=== PATIENT | male | born 1980 | race Caucasian/White ===

== ENCOUNTER 2025-02-13 21:27 | Emergency (ER) | payer MEDICAID ==
[~2025-02-13] VITALS: Ht 167.6 cm; Wt 90.0 kg
[2025-02-13 21:32] VITALS: O2SAT 100
[2025-02-13] MEDS ORDERED: MIDAZOLAM HCL 5 MG/ML VIAL IM ONE (22:00)
[2025-02-13] MEDS: SODIUM CHLORIDE 0.9% 1,000 ML IV ONE (23:03)
[2025-02-13 23:06] LABS: BASOPHILS % 0.5 % (0.0-2.0); EOSINOPHILS % 4.3 % (0.0-5.0); HEMATOCRIT. 42.8 % (42.0-52.0); HEMOGLOBIN. 14.4 g/dL (14.0-18.0); LYMPHOCYTES % 41.6 % (20.0-50.0); MEAN PLATELET VOLUME 8.0 fl (7.4-10.4); MONOCYTES % 6.6 % (2.0-8.0); NEUTROPHILS % 47.0 % (40.0-76.0); PLATELET 276 x1000/uL (130-400); RED BLOOD CELL COUNT 5.13 mill/uL (4.7-6.1); RED CELL DISTRIBUTION WIDTH 13.2 % (11.6-14.6)
[2025-02-13 23:20] LABS: CREATININE 1.0 mg/dL (0.6-1.3)
[2025-02-13 23:21] LABS: UREA NITROGEN BLOOD 8 mg/dL (9-23)
[2025-02-13 23:23] LABS: ASPARTATE AMINOTRANSFERASE 34 IU/L (<34); BILIRUBIN DIRECT 0.1 mg/dL (<=3.0); BILIRUBIN TOTAL 0.4 mg/dL (0.1-1.0); PROTEIN TOTAL 6.7 g/dL (6.0-8.3)
[2025-02-14] MEDS: MIDAZOLAM HCL 2 MG/2 ML VIAL IM NR (01:16)
[2025-02-14] MEDS: HALOPERIDOL LACTATE 5MG/ML VIAL IM ONE (01:16)
[2025-02-14] MEDS: DIPHENHYDRAMINE 50MG/ML VIAL IM ONE (01:16)
[2025-02-14 06:00] VITALS: BP 107/63; PULSE 55; RESP 18; TEMP 36.9; O2SAT 97
[2025-02-14 11:04] LABS: *AMPHETAMINES SCREEN URINE NEGATIVE (NEGATIVE); *BENZODIAZEPINES SCREEN URINE NEGATIVE (NEGATIVE)
[2025-02-14 11:05] LABS: *BARBITURATES SCREEN URINE NEGATIVE (NEGATIVE); *COCAINE SCREEN URINE NEGATIVE (NEGATIVE); METHADONE URINE SCREEN NEGATIVE (NEGATIVE); OPIATES URINE SCREEN NEGATIVE (NEGATIVE)
[2025-02-14 11:06] LABS: CANNABINOID URINE SCREEN NEGATIVE (NEGATIVE); ECSTASY MDMA SCREEN URINE NEGATIVE (NEGATIVE); PHENCYCLIDINE URINE SCREEN NEGATIVE (NEGATIVE)
[2025-02-14] MEDS: ARIPIPRAZOLE 5MG TABLET PO SCH (11:41)
[2025-02-14] MEDS: ACETAMINOPHEN 325MG TABLET PO ONE (16:30)
== END 2025-02-14 17:50 ==
LOC: ER 21:27
DX: R45.851 Suicidal ideations (principal); F25.1 Schizoaffective disorder, depressive type; F10.129 Alcohol abuse with intoxication, unspecified; Z79.899 Other long term (current) drug therapy; Z20.822 Contact with and (suspected) exposure to COVID-19; Y90.6 Blood alcohol level of 120-199 mg/100 ml
CPT/HCPCS: 80076; 80048; 80307; 80329; 80320; 85025; 36415; 93005; 96360; 99285; 87426; 80305; J7030; J2250; G0480